=== PATIENT | male | born 1965 | race Caucasian/White ===

== ENCOUNTER 2017-05-20 07:21 | Emergency (ER) | payer MEDICARE, OTHER ==
[2017-05-20 07:35] VITALS: RESP 18; TEMP 96.9
[2017-05-20] MEDS ORDERED: hydrALAZINE HCL 20 MG/ML 1 ML VIAL IM STA (07:59)
[2017-05-20] MEDS ORDERED: Acetaminophen-Codeine 300-30mg TAB PO STA (08:00)
[2017-05-20 08:07] VITALS: BP 138/88
[2017-05-20 08:20] LABS: Anisocytosis Slight; Basophils % (A) 1 %; CH 24.7; CHCM 31.8; Eosinophils # (A) 0.2 k/uL (0-0.7); Eosinophils % (A) 3 %; HDW 3.14; HGB 11.9 gm/dL (13.0-17.5); Hypochromasia Slight; Luc # (Auto) 0.11; Luc % (Auto) 2; Lymphocytes # (A) 1.6 k/uL (1.0-4.8); Lymphocytes % (A) 24 %; MCH 23.8 pg (25.0-35.0); MCHC 30.5 g/dL (31.0-37.0); MCV 78.1 fL (80.0-100.0); Mean Platelet Volume 10.6; Microcytosis Slight; Monocytes # (A) 0.4 k/uL (0-1.0); Monocytes % (A) 7 %; Neutrophils # (A) 4.1 k/uL (1.3-7.7); Neutrophils % (A) 64 %; RBC 4.99 m/uL (4.30-5.90); RDW 16.3 % (11.5-15.5); WBC 6.4 k/uL (3.8-10.6); WBC (Perox) 6.74
--- NOTE | 2017-05-20 08:37 | XR ---
EXAMINATION TYPE: XR forearm LT , 2 VIEWS DATE OF EXAM ORDERED: 05/20/2017 HISTORY: Pain. COMPARISON: None. FINDINGS: No long bone abnormality is seen. No fracture or dislocation is identified. IMPRESSION: NORMAL LEFT RADIUS AND ULNA.
--- NOTE | 2017-05-20 08:38 | XR ---
EXAMINATION TYPE: XR humerus LT , 2 VIEWS DATE OF EXAM ORDERED: 05/20/2017 HISTORY: Pain. COMPARISON: None. FINDINGS: No long bone abnormalities identified. No fracture, dislocation or other acute osseous les ion is seen. IMPRESSION: NO ACUTE OSSEOUS LESION.
--- NOTE | 2017-05-20 09:32 | US ---
EXAMINATION TYPE: US venous doppler duplex UE LT DATE OF EXAM: 05/20/2017 COMPARISON: NONE CLINICAL HISTORY: Pain. Left arm pain x 3 days. No redness or swelling. No blood thinners or hx of blood clots. SIDE PERFORMED: Left Left Arm: Appears negative for DVT IMPRESSION: THIS EXAMINATION IS NEGATIVE FOR DVT WITHIN THE LEFT ARM.
--- NOTE | 2017-05-20 10:12 | ED ---
Upper Extremity HPI - General Chief Complaint: Extremity Injury, Upper Stated Complaint: left arm pain Time Seen by Provider: 05/20/17 07:49 Source: patient Mode of arrival: ambulatory Limitations: no limitations - History of Present Illness Initial Comments: 13 years old male presented with a left proximal leg, left, been hurting for the last 3 days he feels that the pain is 60. The muscles he denies any trauma he denies any fall he denies any history of cancer or stroke, he denies any solution for recent increased workout activity. No chest pain or shortness of breath no pleuritic chest pain no fever no chills - Related Data Previous Rx's Medication Instructions Recorded Diclofenac Sodium [Voltaren] 50 mg PO BID #30 tablet. 05/20/17 Allergies Allergy/AdvReac Type Severity Reaction Status Date / Time lisinopril Allergy Swelling Verified 05/20/17 07:35 Review of Systems ROS Statement: Those systems with pertinent positive or pertinent negative responses have been documented in the HPI. ROS Other: All systems not noted in ROS Statement are negative. Past Medical History Past Medical History: Hypertension Additional Past Medical History / Comment(s): Terets syndrome, low testosterone History of Any Multi-Drug Resistant Organisms: None Reported Additional Past Surgical History / Comment(s): left hip, Past Psychological History: Depression Smoking Status: Current every day smoker Past Alcohol Use History: None Reported Past Drug Use History: None Reported General Exam - General Exam Comments Initial Comments: General: The patient is awake and alert, in no distress, and does not appear acutely ill. Skin: Skin is warm and dry and no rashes or lesions are noted. Eye: Pupils are equal, round and reactive to light, extra-ocular movements are intact; there is normal conjunctiva bilaterally. Ears, nose, mouth and throat: There are moist mucous membranes and no oral lesions. Neck: The neck is supple, there is no tenderness or JVD. Cardiovascular: There is a regular rate and rhythm. No murmur, rub or gallop is appreciated. Respiratory: To auscultation bilateral, no wheezing no rhonchi no distress respiratory robles noticed Gastrointestinal: Soft, non-distended, non-tender abdomen without masses or organomegaly noted. There is no rebound or guarding present. Bowel sounds are unremarkable. Back: There is no tenderness to palpation in the midline. There is no obvious deformity. Musculoskeletal: Deep palpation of the biceps and triceps reveals some tenderness, no neurovascular compromise noticed no motor or sensory deficits noticed. Refills are fine on the left forearm in the fingers. Neurological: CN II-XII intact, Cranial nerves III through XII are intact. There are no obvious motor or sensory deficits. Coordination appears grossly intact. Speech is normal. Psychiatric: Cooperative, appropriate mood & affect, normal judgment. Limitations: no limitations Course Vital Signs 05/20/17 05/20/17 07:30 08:06 Temperature 96.9 F L Pulse Rate 80 71 Respiratory 18 18 Rate Blood Pressure 183/94 138/88 O2 Sat by Pulse 99 96 Oximetry Medical Decision Making - Lab Data Result diagrams: 05/20/17 08:13 Lab Results 05/20/17 05/20/17 Range/Units 08:13 08:13 WBC 6.4 (3.8-10.6) k/uL RBC 4.99 (4.30-5.90) m/uL Hgb 11.9 L (13.0-17.5) gm/dL Hct 39.0 (39.0-53.0) % MCV 78.1 L (80.0-100.0) fL MCH 23.8 L (25.0-35.0) pg MCHC 30.5 L (31.0-37.0) g/dL RDW 16.3 H (11.5-15.5) % Plt Count 242 (150-450) k/uL Neutrophils % 64 % Lymphocytes % 24 % Monocytes % 7 % Eosinophils % 3 % Basophils % 1 % Neutrophils # 4.1 (1.3-7.7) k/uL Lymphocytes # 1.6 (1.0-4.8) k/uL Monocytes # 0.4 (0-1.0) k/uL Eosinophils # 0.2 (0-0.7) k/uL Basophils # 0.0 (0-0.2) k/uL Hypochromasia Slight Anisocytosis Slight Microcytosis Slight D-Dimer 0.88 H (<0.60) mg/L FEU Disposition Clinical Impression: Pain in left arm Disposition: HOME SELF-CARE Condition: Good Instructions: Elbow Sprain (ED) Prescriptions: Diclofenac Sodium [Voltaren] 50 mg PO BID #30 tablet.dr Referrals: Rell Frankel MD [Primary Care Provider] - 1-2 days
[2017-05-20 10:18] VITALS: PULSE 75
== END 2017-05-20 10:17 | disposition home or self-care (01) ==
LOC: EC 07:21
DX: M79.602 Pain in left arm (principal); F17.200 Nicotine dependence, unspecified, uncomplicated; Z88.8 Allergy status to other drugs, medicaments and biological substances
CPT/HCPCS: 36415; 85025; 85379; 99284

== ENCOUNTER 2018-03-26 14:54 | Emergency (ER) | payer MEDICARE, OTHER ==
[2018-03-26 15:00] VITALS: BP 125/81; PULSE 76; RESP 16; TEMP 98.1
--- NOTE | 2018-03-26 15:40 | ED ---
General Adult HPI - General Chief complaint: Skin/Abscess/Foreign Body Stated complaint: Elbow abcess Time Seen by Provider: 03/26/18 15:04 Source: patient, RN notes reviewed Mode of arrival: ambulatory Limitations: no limitations - History of Present Illness Initial comments: Patient 52-year-old male presenting to the emergency room today with a chief complaint of swelling to the posterior aspect of the right elbow. Patient admits that he's had similar symptoms in the past. States this started approximately 4-7 days ago. Patient states that his nontender. The directly put pressure on it. Patient denies any other complaints or symptoms. Patient denies any recent fever, chills, shortness of breath, chest pain, back pain, abdominal pain, nausea or vomiting, numbness or tingling, dysuria or hematuria, constipation or diarrhea, headaches or visual changes, or any other complaints. - Related Data Home Medications Medication Instructions Recorded Confirmed Acetaminophen [Tylenol] 650 mg PO Q4H PRN 03/26/18 03/26/18 Albuterol Inhaler [Ventolin Hfa 1 - 2 puff INHALATION RT-Q4H PRN 03/26/18 Inhaler] Benztropine Mesylate Unknown Dose 1 tab PO BID@0600,1730 03/26/18 03/26/18 Chlorpheniramine Maleate 4 mg PO Q4H PRN 03/26/18 03/26/18 [Chlor-Trimeton] FLUoxetine HCL [PROzac] 20 mg PO BID@0600,1730 03/26/18 03/26/18 Ibuprofen 600 mg PO Q6H PRN 03/26/18 03/26/18 Mirtazapine [Remeron] 15 mg PO HS 03/26/18 03/26/18 Omeprazole [PriLOSEC] 20 mg PO AC-BRKFST 03/26/18 03/26/18 Propranolol HCl 40 mg PO BID 03/26/18 03/26/18 Sulfamethoxazole/Trimethoprim 1 tab PO BID@0600,1530 03/26/18 03/26/18 [Bactrim DS 800-160 mg] Tamsulosin HCl [Flomax] 0.4 mg PO DAILY 03/26/18 03/26/18 amLODIPine [Norvasc] 10 mg PO BID@0600,1730 03/26/18 03/26/18 guaiFENesin [guaiFENesin Oral 200 mg PO Q4H PRN 03/26/18 03/26/18 Solution] Allergies Allergy/AdvReac Type Severity Reaction Status Date / Time lisinopril Allergy Swelling Verified 03/26/18 15:16 Review of Systems ROS Statement: Those systems with pertinent positive or pertinent negative responses have been documented in the HPI. ROS Other: All systems not noted in ROS Statement are negative. Past Medical History Past Medical History: Hypertension Additional Past Medical History / Comment(s): Terets syndrome, low testosterone History of Any Multi-Drug Resistant Organisms: None Reported Past Surgical History: Orthopedic Surgery Additional Past Surgical History / Comment(s): left hip, I&D of cyst to buttocks Past Psychological History: Depression Smoking Status: Current every day smoker Past Alcohol Use History: None Reported Past Drug Use History: None Reported General Exam - General Exam Comments Initial Comments: General: The patient is awake and alert, in no distress, and does not appear acutely ill. Neck: The neck is supple, there is no tenderness or JVD. Musculoskeletal: Patient does have moderate swelling to the posterior aspect of the right elbow. Shows full range of motion. Local tenderness on exam. Findings consistent with bursitis. Sensations intact. Strength 5/5. Radial pulses 2+. Neurological: A&O x 3. CN II-XII intact, There are no obvious motor or sensory deficits. Coordination appears grossly intact. Speech is normal. Skin: Skin is warm and dry and no rashes or lesions are noted. Psychiatric: Normal mood and affect. Limitations: no limitations Course Vital Signs 03/26/18 14:56 Temperature 98.1 F Pulse Rate 76 Respiratory 16 Rate Blood Pressure 125/81 O2 Sat by Pulse 97 Oximetry Procedures - Procedures Initial comment: Patient's right elbow was prepped and cleaned with Betadine. Ethyl chloride spray was used to anesthetize the area locally. 18-gauge needle was used to aspirate bursa. Approximately 15 mL of fluid was removed. Patient tolerated procedure well. Bereket wrap was placed over top and advised patient to remove in 10-15 minutes. Medical Decision Making - Medical Decision Making Patient presenting for bursitis to the right elbow. Patient was agreeable to try to drain the area did advise that is chance that it may fill back up. Patient tolerated procedure well. Was placed in Bereket wrap for some compression afterwards 10-15 minutes. Patient be discharged home. Disposition Clinical Impression: Olecranon bursitis, right elbow Disposition: HOME SELF-CARE Condition: Good Instructions: Elbow Bursitis (ED) Additional Instructions: Please return to emergency room if any symptoms increase or worsen or for any other concerns. Is patient prescribed a controlled substance at d/c from ED?: No Referrals: None,Stated [Primary Care Provider] - 1-2 days Time of Disposition: 15:40
== END 2018-03-26 15:54 | disposition home or self-care (01) ==
LOC: EC 14:54
DX: M70.21 Olecranon bursitis, right elbow (principal); I10 Essential (primary) hypertension; F32.9 Major depressive disorder, single episode, unspecified; F17.200 Nicotine dependence, unspecified, uncomplicated; Z79.899 Other long term (current) drug therapy; Z88.8 Allergy status to other drugs, medicaments and biological substances
CPT/HCPCS: 20605; 99282

== ENCOUNTER 2018-05-23 18:51 | Inpatient (IN) | payer MEDICARE ==
--- NOTE | 2018-05-23 19:25 | ED ---
General Adult HPI - General Chief complaint: Psychiatric Symptoms Stated complaint: Detox Source: patient, family Mode of arrival: wheelchair Limitations: no limitations - History of Present Illness Initial comments: Dictation was produced using xaitment dictation software. please excuse any grammatical, word or spelling errors. Chief Complaint: Patient is a 52-year-old male presents after alcohol intoxication. According to his friend who brought him here he complained of wanting to kill himself. She allegedly fell down 5 steps. History of Present Illness: 52-year-old male who is brought by his friend. Patient is severely intoxicated. He allegedly fell down 5 steps. Patient unable to provide HPI this time likely secondary to severe intoxication of alcohol. According to triage nurse his friend brought him here after stating he wanted to kill himself. He allegedly fell down 5 steps as well. Patient is arousable however does not remember this incident happening. Patient does report saying he wanted to kill himself. - Related Data Home Medications Medication Instructions Recorded Confirmed Acetaminophen [Tylenol] 650 mg PO Q4H PRN 03/26/18 03/26/18 Albuterol Inhaler [Ventolin Hfa 1 - 2 puff INHALATION RT-Q4H PRN 03/26/18 Inhaler] Benztropine Mesylate Unknown Dose 1 tab PO BID@0600,1730 03/26/18 03/26/18 Chlorpheniramine Maleate 4 mg PO Q4H PRN 03/26/18 03/26/18 [Chlor-Trimeton] FLUoxetine HCL [PROzac] 20 mg PO BID@0600,1730 03/26/18 03/26/18 Ibuprofen 600 mg PO Q6H PRN 03/26/18 03/26/18 Mirtazapine [Remeron] 15 mg PO HS 03/26/18 03/26/18 Omeprazole [PriLOSEC] 20 mg PO AC-BRKFST 03/26/18 03/26/18 Propranolol HCl 40 mg PO BID 03/26/18 03/26/18 Sulfamethoxazole/Trimethoprim 1 tab PO BID@0600,1530 03/26/18 03/26/18 [Bactrim DS 800-160 mg] Tamsulosin HCl [Flomax] 0.4 mg PO DAILY 03/26/18 03/26/18 amLODIPine [Norvasc] 10 mg PO BID@0600,1730 03/26/18 03/26/18 guaiFENesin [guaiFENesin Oral 200 mg PO Q4H PRN 03/26/18 03/26/18 Solution] Allergies Allergy/AdvReac Type Severity Reaction Status Date / Time lisinopril Allergy Swelling Verified 05/23/18 18:59 Review of Systems ROS Statement: Those systems with pertinent positive or pertinent negative responses have been documented in the HPI. ROS Other: All systems not noted in ROS Statement are negative. Past Medical History Past Medical History: Hypertension Additional Past Medical History / Comment(s): Terets syndrome, low testosterone History of Any Multi-Drug Resistant Organisms: None Reported Past Surgical History: Orthopedic Surgery Additional Past Surgical History / Comment(s): left hip, I&D of cyst to buttocks Past Psychological History: Depression Smoking Status: Current every day smoker Past Alcohol Use History: Abuse, Daily, Heavy Past Drug Use History: None Reported General Exam - General Exam Comments Initial Comments: PHYSICAL EXAM: General Impression: Alert and oriented, inebriated HEENT: Normocephalic atraumatic, extra-ocular movements intact, pupils equal and reactive to light bilaterally, mucous membranes moist. Cardiovascular: Heart regular rate and rhythm, S1&S2 audible, no murmurs, rubs or gallops Chest: Lungs clear to auscultation bilaterally, no rhonchi, no wheeze, no rales Abdomen: Bowel sounds present, abdomen soft, non-tender, non-distended, no organomegaly Musculoskeletal: Pulses present and equal in all extremities, no peripheral edema Motor: Moves all extremity is grossly Neurological: CN II-XII grossly intact, no focal motor or sensory deficits noted Skin: Intact with no visualized rashes Psych: Normal affect and mood Limitations: no limitations Course Vital Signs 05/23/18 18:55 Temperature 98.4 F Pulse Rate 109 H Respiratory 20 Rate Blood Pressure 149/96 O2 Sat by Pulse 98 Oximetry Medical Decision Making - Medical Decision Making ED course: 52-year-old male presents with history of suicidal ideation and fall down 5 steps. Patient intoxicated. As upon arrival shows heart rate of 109, worse vital signs within normal limits. Physical examination is benign. No findings of injury on external examination.Laboratory evaluation obtained. CBC unremarkable. Metabolic panel shows sodium of 1:30. There is mild gap acidosis likely secondary to EtOH intoxication. Hyperglycemia 1:15. Serum alcohol is 388. Clinical presentation consistent with beer potomania. Chest x-ray, pelvis x-ray, CT of the head and C-spine shows no traumatic issues. Given degree of intoxication we 'll plan to have patient admitted to the hospital. He will need suicide precautions patient started on intravenous fluids. He is given vitamins. EKG interpretation: Ventricular rate 112, sinus tachycardia,. Interval 160, QRS 94, QTC 475. No MT prolongation, no QTC prolongation, no ST or T-wave changes noted. Overall, this EKG is unremarkable - Lab Data Result diagrams: 05/23/18 19:45 05/23/18 19:45 Lab Results 05/23/18 05/23/18 Range/Units 19:45 19:45 WBC 10.2 (3.8-10.6) k/uL RBC 5.18 (4.30-5.90) m/uL Hgb 13.2 (13.0-17.5) gm/dL Hct 39.4 (39.0-53.0) % MCV 76.1 L (80.0-100.0) fL MCH 25.5 (25.0-35.0) pg MCHC 33.5 (31.0-37.0) g/dL RDW 17.0 H (11.5-15.5) % Plt Count 359 (150-450) k/uL Neutrophils % 82 % Lymphocytes % 12 % Monocytes % 4 % Eosinophils % 1 % Basophils % 0 % Neutrophils # 8.3 H (1.3-7.7) k/uL Lymphocytes # 1.2 (1.0-4.8) k/uL Monocytes # 0.4 (0-1.0) k/uL Eosinophils # 0.1 (0-0.7) k/uL Basophils # 0.0 (0-0.2) k/uL Anisocytosis Slight Microcytosis Slight Sodium 130 L (137-145) mmol/L Potassium 4.1 (3.5-5.1) mmol/L Chloride 90 L (98-107) mmol/L Carbon Dioxide 17 L (22-30) mmol/L Anion Gap 23 mmol/L BUN 2 L (9-20) mg/dL Creatinine 0.58 L (0.66-1.25) mg/dL Est GFR (CKD-EPI)AfAm >90 (>60 ml/min/1.73 sqM) Est GFR (CKD-EPI)NonAf >90 (>60 ml/min/1.73 sqM) Glucose 115 H (74-99) mg/dL Calcium 8.9 (8.4-10.2) mg/dL Salicylates <1.0 mg/dL Serum Alcohol 388 H* mg/dL Acetone, Qual Negative (Negative) Disposition Clinical Impression: Alcohol intoxication Disposition: ADMITTED IP TO THIS HOSP Condition: Fair Referrals: None,Stated [Primary Care Provider] - 1-2 days Decision Time: 21:56
[2018-05-23 19:59] LABS: Anisocytosis Slight; Basophils % (A) 0 %; Eosinophils # (A) 0.1 k/uL (0-0.7); Eosinophils % (A) 1 %; HCT 39.4 % (39.0-53.0); HGB 13.2 gm/dL (13.0-17.5); Lymphocytes # (A) 1.2 k/uL (1.0-4.8); Lymphocytes % (A) 12 %; MCH 25.5 pg (25.0-35.0); MCHC 33.5 g/dL (31.0-37.0); MCV 76.1 fL (80.0-100.0); Microcytosis Slight; Monocytes # (A) 0.4 k/uL (0-1.0); Monocytes % (A) 4 %; Neutrophils # (A) 8.3 k/uL (1.3-7.7); Neutrophils % (A) 82 %; Platelet Count 359 k/uL (150-450); RBC 5.18 m/uL (4.30-5.90); WBC 10.2 k/uL (3.8-10.6)
--- NOTE | 2018-05-23 20:08 | CT ---
EXAMINATION TYPE: CT brain kwan kumar DATE OF EXAM: 05/23/2018 COMPARISON: None HISTORY: ETOH. Altered mental status. CT DLP: 1647.8 mGycm Automated exposure control for dose reduction was used. TECHNIQUE: CT scan of the head and cervical spine are performed without contrast. FINDINGS: There is some cerebral cortical atrophy. There is no mass effect nor midline shift. There is no sign of intracranial hemorrhage. There is 3.5 x 1.5 cm area of fluid density in the right occi pital lobe consistent with old cortical infarct and encephalomalacia. Cervical vertebra have normal alignment. There is some degenerative disc space narrowing the lower ce rvical spine. There is no compression fracture. Facet joints are intact. There is mild spurring of th e endplates. The skull base is intact. 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 No fracture. 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 No acute intracranial abnormality.
[2018-05-23 20:11] LABS: Anion Gap 23 mmol/L; Blood Urea Nitrogen 2 mg/dL (9-20); Calcium 8.9 mg/dL (8.4-10.2); Carbon Dioxide 17 mmol/L (22-30); Chloride 90 mmol/L (98-107); Glucose 115 mg/dL (74-99); Potassium 4.1 mmol/L (3.5-5.1); Salicylate <1.0 mg/dL; Sodium 130 mmol/L (137-145)
[2018-05-23 20:19] LABS: Alcohol 388 mg/dL
--- NOTE | 2018-05-23 21:40 | XR ---
EXAMINATION TYPE: XR chest 1V DATE OF EXAM: 05/23/2018 COMPARISON: NONE HISTORY: Fall. Chest pain TECHNIQUE: Single frontal view of the chest is obtained. FINDINGS: There is no heart failure nor confluent pneumonic infiltrate. There are bilateral old heal ed rib fractures. I see no definite acute fracture. Costophrenic angles are clear. There is no pneumo thorax. IMPRESSION: No active cardiopulmonary disease.
--- NOTE | 2018-05-23 21:41 | XR ---
EXAMINATION TYPE: XR pelvis AP view DATE OF EXAM: 05/23/2018 COMPARISON: NONE HISTORY: Pain TECHNIQUE: Single view FINDINGS: There is left hip prosthesis. There is mild protrusio of the prosthetic acetabulum. I see n o acute fracture. Pelvic ring is intact. Sacroiliac joints are intact. IMPRESSION: Mild protrusio of the prosthetic acetabulum. No acute bony abnormality.
[2018-05-23] MEDS ORDERED: SODIUM CHLORIDE 0.9% 1,000 ML IV STA (21:51)
[2018-05-23] MEDS ORDERED: NALOXONE 0.4 MG/ML 1 ML VIAL IV PRN (21:52)
[2018-05-23] MEDS ORDERED: THIAMINE 100 MG/ML 2 ML VIAL IM STA (21:53)
[2018-05-23] MEDS ORDERED: FOLIC ACID 1 MG TAB PO STA (21:53)
[2018-05-23 22:11] LABS: Amphetamine Screen,Urine Not Detected (NotDetected); Barbiturate Screen,Urine Not Detected (NotDetected); Benzodiazepines Screen,Urine Not Detected (NotDetected); Cocaine Screen,Urine Not Detected (NotDetected); Methadone Screen, Urine Not Detected (NotDetected); Opiate Screen,Urine Not Detected (NotDetected); Oxycodone Screen, Urine Not Detected (NotDetected); Phencyclidine Screen,Urine Not Detected (NotDetected); Tricyclic Antidepressant,Urine Not Detected (NotDetected); Urn Cannabinoid Scrn Not Detected (NotDetected)
[2018-05-23] MEDS ORDERED: LORazepam 2 MG/ML INJ IV STA (22:23)
[2018-05-23] MEDS ORDERED: LORazepam 2 MG/ML INJ IV PRN ×2 (23:03)
[2018-05-23] MEDS ORDERED: NICOTINE 14MG/24HR PATCH TRANSDERM STA (23:05)
[2018-05-23] MEDS: LORazepam 2 MG/ML INJ IV PRN (23:40)
[2018-05-24] MEDS ORDERED: oxyCODONE-APAP 10-325MG 1 EACH TAB PO PRN (00:47)
[2018-05-24] MEDS ORDERED: TESTOSTERONE CYPIONATE 200 MG/ML 1ML VIAL IM SCH (01:00)
[2018-05-24] MEDS: chlordiazePOXIDE 25 MG CAP PO SCH ×4 (01:19→21:11)
[2018-05-24] MEDS: THIAMINE 100 MG TAB PO SCH ×3 (01:39→17:58)
[2018-05-24 04:20] LABS: Hemoglobin A1C 5.7 % (4.0-6.0)
[2018-05-24] MEDS: LORazepam 2 MG/ML INJ IV PRN ×5 (06:15→14:37)
[2018-05-24] MEDS: GABAPENTIN 400 MG CAP PO SCH ×4 (07:24→21:09)
[2018-05-24] MEDS: PANTOPRAZOLE 40 MG TABLET PO SCH (07:24)
[2018-05-24] MEDS: HEPARIN SODIUM,PORCINE 5,000 UNIT/ML 1 ML VIAL SQ SCH ×2 (07:24→21:09)
[2018-05-24] MEDS: NICOTINE 14MG/24HR PATCH TRANSDERM SCH (07:24)
--- NOTE | 2018-05-24 08:39 | HP ---
HISTORY AND PHYSICAL DATE OF SERVICE: 05/23/2018 CHIEF COMPLAINT: Alcohol intoxication. HISTORY OF PRESENT ILLNESS: This is a 52-year-old gentleman with a past medical history of multiple medical problems, including hypertension, history of Tourette syndrome, history of low testosterone, history of depression also gives history of current smoking and alcohol intoxication. Patient was brought by a friend to the to the ER in intoxicated state, had a fall and patient was found to be severely intoxicated and admitted for further evaluation. Patient is incoherent. Alcohol level was 388. Most of the history is from my discussion with staff and review of chart at this time. There is no history of fever, rigors or chills at this time. PAST MEDICAL HISTORY: Hypertension, Tourette syndrome, depression, history of nicotine dependence, ETOH. MEDICATIONS ARE: 1. Testosterone. 2. Oxycodone 10 mg q.4 p.r.n. 3. Norvasc 10 mg b.i.d. 4. Prilosec 20 mg daily. 5. Haldol 150 mg p.o. b.i.d. 6. Gabapentin 800 mg q.i.d. 7. Prozac 20 mg t.i.d. ALLERGIES: LISINOPRIL. FAMILY HISTORY: Unable to obtain. SOCIAL HISTORY: History of alcohol, smoking as mentioned earlier. REVIEW OF SYSTEMS: Could not be taken because the patient is confused. PHYSICAL EXAM: Pulse 104, blood pressure 114/88, respirations 16, temperature 98.4, pulse ox 97% on room air. HEENT: Oral mucosa moist. Neck is no jugular venous distention. No lymph node enlargement. CARDIOVASCULAR SYSTEMS: S1, S2, muffled. RESPIRATION: Breath sounds diminished at the bases, scattered rhonchi, no crackles. ABDOMEN: Soft, nontender. No mass palpable. LEGS: No edema, no swelling. NERVOUS SYSTEM: Higher functions as mentioned earlier. Moves all four limbs. No lymph nodes. SKIN: No ulcer, no rashes. LABS: CBC within normal. Sodium 130, glucose 115. ASSESSMENT: 1. Acute alcohol intoxication. 2. Possibly alcoholic withdrawal syndrome. 3. Hyponatremia. 4. History of fall. 5. Hypertension. 6. Tourette syndrome. 7. Low testosterone. 8. History of nicotine dependence. 9. History of depression. RECOMMENDATION: In this 52-year-old gentleman who presented with multiple medical issues, at this time I recommend to continue current management. Continue symptomatic treatment, CIWA protocol. Repeat labs. Otherwise, resume the home medications. Symptomatic treatment. 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 Otherwise in rehab and evaluation of the home situation. Otherwise, prognosis guarded because of multiple complex medical issues. Further recommendations to follow. See orders for further details. Consult Psych also because of extensive psychiatric history. MMODL / IJN: [id number] /
--- NOTE | 2018-05-24 12:37 | P.CN ---
Psychiatric Consult - . Consult date: 05/24/18 Consult:: 05/24/18 12:26 Suicidal Assessment and Plan Assessment: Chief Complaint: Patient is a 52-year-old male presents after alcohol intoxication. According to his friend who brought him here he complained of wanting to kill himself. He allegedly fell down 5 steps. 52-year-old male presents with history of suicidal ideation and fell down 5 steps. Patient intoxicated. As upon arrival he shows heart rate of 109 , worse vital signs within normal limits. Physical examination is benign. No findings of injury on external examination.Laboratory evaluation obtained. CBC unremarkable. Metabolic panel shows sodium of 1:30. There is mild gap acidosis likely secondary to EtOH intoxication. Hyperglycemia 1:15. Serum alcohol is 388. Clinical presentation consistent with beer ingestion Chest x- ray, pelvis x-ray, CT of the head and C-spine shows no traumatic issues. Given degree of intoxication we'll plan to have patient admitted to the hospital. He will need suicide precautions patient started on intravenous fluids. He is given vitamins. Current chief complaint is he needs a psychiatric medication and she'll be [facility]. Past Medical History Past Medical History: Hypertension Additional Past Medical History / Comment(s): Terets syndrome, low testosterone History of Any Multi-Drug Resistant Organisms: None Reported Past Surgical History: Orthopedic Surgery Additional Past Surgical History / Comment(s): left hip, I&D of cyst to buttocks Past Psychological History: Depression Smoking Status: Current every day smoker Past Alcohol Use History: Abuse, Daily, Heavy Past Drug Use History: None Reported Mental Status Examination - this is a 52-year-old who was brought in because of questionable suicidal ideation and alcohol intoxication. He has multiple tattoos over his body. I had checked with [facility] this morning he is one of their clients. General Appearance: disheveled, , appears older than stated age] Speech/Language: [spontaneous, slow, rapid, slurred, rambled, mumbling, hesitant , halting, monotone, expressive, mute, loud, soft, other] Attitude/Behavior: [cooperative Mood: depressed, anxious, Affect: [full range,labile] Orientation: [time, person, place situation] Thought Content: [wnl, Risk Factors: [He is not suicidal (ideations, plan), and/or Homicidal (ideations , plan)] Perception: [wnl Thought Processes: [goal-oriented Concentration/Attention Span: [wnl] [Per observation and interview with the patient] Recent Memory: [wnl Remote Memory: [wnl] [past events, as related history] Intelligence: [below average] [based on history, based on vocabulary, syntax, grammar, and content] Judgement: [ poor] [per patient's behavior/history of present illness] Insight: [ poor] [understanding severity of illness/history of present illness Clinical impression: This is a 52-year-old chronically mentally ill dual diagnosed individual who has little interest in stopping drinking. He states that he has run out of his Haldol decanoate and states he [facility]. At this time I don't see a need for sitter since he is not suicidal or homicidal but just recovering from alcohol intoxication. He had appropriate medications on board to deal with his alcohol withdrawal and I see no need for a sitter. Recommendations: I do not see a need for this man to be in psychiatric unit since he is intoxicated and will require detox from alcohol which is begun already. Thank you so much for the consultation Flaquito Taylor D.O. PhD attending psychiatrist Jose Rafael Ortiz (1) Suicidal ideations Current Visit: Yes Status: Acute Priority: Low Code(s): R45.851 - SUICIDAL IDEATIONS SNOMED Code(s): 5613257 (2) Alcohol intoxication Current Visit: Yes Status: Acute Priority: Medium Code(s): F10.929 - ALCOHOL USE, UNSPECIFIED WITH INTOXICATION, UNSPECIFIED SNOMED Code(s): 95385785 Plan: [facility] he does not need inpatient treatment at the current time Time with Patient: Less than 30
[2018-05-24] MEDS: amLODIPine 10 MG TAB PO SCH ×2 (14:14→21:09)
[2018-05-24] MEDS: FLUoxetine HCL 20 MG CAP PO SCH ×2 (14:15→21:09)
[2018-05-24] MEDS ORDERED: SODIUM CHLORIDE 0.9% 1,000 ML with POTASSIUM CHLORIDE 20 MEQ, MVI, ADULT NO.4 WITH VIT ... IV SCH ×5 (17:45)
[2018-05-24] MEDS: 1: MVI, ADULT NO.4 WITH VIT K 10 ML, THIAMINE 100 MG, FOLIC ACID 1 MG, POTASSIUM CHLORID IV SCH ×6 (18:54)
[2018-05-24] MEDS: TEMAZEPAM 15 MG CAP PO PRN (21:12)
[2018-05-24] MEDS: KETOROLAC 30 MG/ML 1 ML VIAL IVP PRN (22:03)
[2018-05-25] MEDS ORDERED: KETOROLAC 30 MG/ML 1 ML VIAL IVP SCH
[2018-05-25] MEDS: 1: MVI, ADULT NO.4 WITH VIT K 10 ML, THIAMINE 100 MG, FOLIC ACID 1 MG, POTASSIUM CHLORID IV SCH ×12 (05:32→17:14)
[2018-05-25] MEDS: KETOROLAC 30 MG/ML 1 ML VIAL IVP PRN ×2 (08:15→17:17)
[2018-05-25] MEDS: FLUoxetine HCL 20 MG CAP PO SCH ×3 (08:16→21:48)
[2018-05-25] MEDS: NICOTINE 14MG/24HR PATCH TRANSDERM SCH (08:16)
[2018-05-25] MEDS: amLODIPine 10 MG TAB PO SCH ×2 (08:16→20:02)
[2018-05-25] MEDS: HEPARIN SODIUM,PORCINE 5,000 UNIT/ML 1 ML VIAL SQ SCH ×2 (08:16→20:03)
[2018-05-25] MEDS: PANTOPRAZOLE 40 MG TABLET PO SCH (08:16)
[2018-05-25] MEDS: chlordiazePOXIDE 25 MG CAP PO SCH ×3 (08:16→21:48)
[2018-05-25] MEDS: GABAPENTIN 400 MG CAP PO SCH ×4 (08:16→20:02)
[2018-05-25 08:29] LABS: Anisocytosis Slight; Basophils % (A) 0 %; Eosinophils # (A) 0.2 k/uL (0-0.7); Eosinophils % (A) 5 %; HCT 40.5 % (39.0-53.0); HGB 12.7 gm/dL (13.0-17.5); Hypochromasia Slight; Lymphocytes # (A) 1.6 k/uL (1.0-4.8); Lymphocytes % (A) 34 %; MCH 25.3 pg (25.0-35.0); MCHC 31.4 g/dL (31.0-37.0); MCV 80.7 fL (80.0-100.0); Mean Platelet Volume 8.2; Microcytosis Slight; Monocytes # (A) 0.3 k/uL (0-1.0); Monocytes % (A) 6 %; Neutrophils # (A) 2.5 k/uL (1.3-7.7); Neutrophils % (A) 53 %; Platelet Count 219 k/uL (150-450); RBC 5.02 m/uL (4.30-5.90); RDW 17.1 % (11.5-15.5); WBC 4.8 k/uL (3.8-10.6)
[2018-05-25 08:45] LABS: Anion Gap 9 mmol/L; Blood Urea Nitrogen 7 mg/dL (9-20); Calcium 8.9 mg/dL (8.4-10.2); Carbon Dioxide 27 mmol/L (22-30); Chloride 101 mmol/L (98-107); Glucose 122 mg/dL (74-99); Potassium 3.9 mmol/L (3.5-5.1); Sodium 137 mmol/L (137-145)
[2018-05-25] MEDS ORDERED: MORPHINE SULFATE 2 MG/ML SYRINGE IVP PRN (08:57)
--- NOTE | 2018-05-25 10:25 | XR ---
EXAMINATION TYPE: XR Hip Complete LT , 2 VIEWS DATE OF EXAM ORDERED: 05/25/2018 HISTORY: fall and pain . COMPARISON: Previous pelvis x-ray dated 05/23/2018. FINDINGS: There is a left hip arthroplasty in place. Prosthetic elements appear in good position. Th ere is a lucency through the greater trochanter which was present previously but is more obvious on t kateryna's examination likely secondary to positioning. This does not have the appearance of an acute fra cture. There is a chronic pleural reaction on the left. IMPRESSION: 1. STATUS POST LEFT HIP ARTHROPLASTY. 2. CHRONIC CHANGES WITHOUT EVIDENCE OF AN ACUTE FRACTURE.
--- NOTE | 2018-05-25 10:26 | XR ---
EXAMINATION TYPE: XR knee 4V LT , 4 VIEWS DATE OF EXAM ORDERED: 05/25/2018 HISTORY: fall and pain . COMPARISON: None. FINDINGS: There is peaking of intercondylar spines. Joint spaces are reasonably well-maintained. No fracture, dislocation or joint effusion is seen. There is a chronic separation of the tibial tubercle . IMPRESSION: 1. NO ACUTE OSSEOUS LESION. 2. DEGENERATIVE CHANGE.
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
[2018-05-25] MEDS: HYDROcodone/APAP 10-325MG 1 EACH TAB PO PRN (12:38)
[2018-05-25] MEDS: THIAMINE 100 MG TAB PO SCH ×2 (12:38→17:14)
--- NOTE | 2018-05-25 12:52 | P.PN ---
Subjective Progress Note Date: 05/24/18 Progress note being dictated for Dr. Saavedra. Interval history this is a 52-year-old gentleman admitted with alcohol intoxication and multiple other medical issues. Maintained on CIWA protocol. Active DTs, significant shaking. CIWA scale currently 11. Evaluated by psychiatry with recommendations noted. Later after rounding on patient, staff notified me that after having a visitor, discovered an empty 1 pint bottle of [place] whiskey. Patient admitted to drinking the entire bottle. Denies chest pain, palpitations or increasing shortness of breath. Objective - Vital Signs Vital signs: Vital Signs Temp 97.1 F L 05/24/18 14:46 Pulse 128 H 05/24/18 14:46 Resp 16 05/24/18 14:46 BP 146/96 05/24/18 14:46 Pulse Ox 97 05/24/18 14:46 Intake & Output 05/24/18 05/24/18 05/25/18 06:59 18:59 06:59 Intake Total 200 Output Total 375 Balance -375 200 Weight 64.5 kg Intake: Oral 200 Output: Urine 375 Other: # Voids 3 # Bowel Movements 0 - Exam -GENERAL: The patient is alert and oriented x3, active DTs HEENT: Pupils are round and equally reacting to light. EOMI. No scleral icterus. No conjunctival pallor. Normocephalic, atraumatic. No pharyngeal erythema. No thyromegaly. CARDIOVASCULAR: S1 and S2 present. No murmurs, rubs, or gallops. PULMONARY: Chest is clear to auscultation, no wheezing or crackles. ABDOMEN: Soft, nontender, nondistended, normoactive bowel sounds. No palpable organomegaly. MUSCULOSKELETAL: No joint swelling or deformity. EXTREMITIES: No cyanosis, clubbing, or pedal edema. NEUROLOGICAL: Higher functions as mentioned earlier, moves all 4 extremities, Active DTs, tremors SKIN: No rashes. - Labs CBC & Chem 7: 05/25/18 08:06 05/25/18 08:06 Assessment and Plan Assessment: Acute alcohol intoxication Alcohol withdrawal syndrome History of fall Hyponatremia Hypertension History of nicotine dependence Tourette syndrome History of depression Plan: Continue on current medication regime ,monitoring and symptomatic treatment. Banana bag. High risk for elopement, sitter ordered. Visitor restrictions as it appears visitor's are bringing in alcohol. GI and DVT prophylaxis in place. Close monitoring of electrolytes with repeat labs ordered for a.m. prognosis guarded given multiple complex medical issues. Patient needs rehab., Social work consult in place. The impression and plan of care has been dictated as directed. : I performed a history and examination of this patient, discussed the same with the dictator. I agree with the dictator's note ,documented as a scribe. Any additional findings or plans will be noted.
[2018-05-26] MEDS: HYDROcodone/APAP 10-325MG 1 EACH TAB PO PRN ×3 (00:12→23:15)
[2018-05-26] MEDS: KETOROLAC 30 MG/ML 1 ML VIAL IVP PRN ×3 (00:22→23:02)
[2018-05-26] MEDS: 1: MVI, ADULT NO.4 WITH VIT K 10 ML, THIAMINE 100 MG, FOLIC ACID 1 MG, POTASSIUM CHLORID IV SCH ×12 (02:49→12:00)
[2018-05-26 07:19] LABS: Anisocytosis Slight; Basophils % (A) 0 %; Eosinophils # (A) 0.4 k/uL (0-0.7); Eosinophils % (A) 5 %; HCT 38.2 % (39.0-53.0); HGB 11.9 gm/dL (13.0-17.5); Hypochromasia Slight; Lymphocytes % (A) 23 %; MCH 24.9 pg (25.0-35.0); MCHC 31.2 g/dL (31.0-37.0); MCV 79.9 fL (80.0-100.0); Mean Platelet Volume 7.7; Microcytosis Slight; Monocytes # (A) 0.3 k/uL (0-1.0); Monocytes % (A) 4 %; Neutrophils # (A) 5.7 k/uL (1.3-7.7); Neutrophils % (A) 67 %; Platelet Count 201 k/uL (150-450); RBC 4.78 m/uL (4.30-5.90); WBC 8.5 k/uL (3.8-10.6)
[2018-05-26 07:33] LABS: Anion Gap 8 mmol/L; Blood Urea Nitrogen 7 mg/dL (9-20); Calcium 8.6 mg/dL (8.4-10.2); Carbon Dioxide 27 mmol/L (22-30); Chloride 102 mmol/L (98-107); Glucose 96 mg/dL (74-99); Potassium 3.9 mmol/L (3.5-5.1); Sodium 137 mmol/L (137-145)
[2018-05-26] MEDS ORDERED: LORazepam 2 MG/ML INJ IV STA (09:54)
[2018-05-26] MEDS ORDERED: MORPHINE SULFATE 4 MG/ML SYRINGE IVP ONE (09:55)
[2018-05-26] MEDS: PANTOPRAZOLE 40 MG TABLET PO SCH (10:40)
[2018-05-26] MEDS: GABAPENTIN 400 MG CAP PO SCH ×4 (10:40→22:59)
[2018-05-26] MEDS: NICOTINE 14MG/24HR PATCH TRANSDERM SCH (10:41)
[2018-05-26] MEDS: FLUoxetine HCL 20 MG CAP PO SCH ×3 (10:41→22:59)
[2018-05-26] MEDS: amLODIPine 10 MG TAB PO SCH ×2 (10:41→23:00)
[2018-05-26] MEDS: chlordiazePOXIDE 25 MG CAP PO SCH ×3 (10:41→22:59)
[2018-05-26] MEDS: THIAMINE 100 MG TAB PO SCH ×2 (10:41→17:58)
[2018-05-26] MEDS: HEPARIN SODIUM,PORCINE 5,000 UNIT/ML 1 ML VIAL SQ SCH ×2 (10:42→23:00)
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
--- NOTE | 2018-05-26 14:22 | US ---
EXAMINATION TYPE: US venous doppler duplex LE LT DATE OF EXAM: 05/25/2018 9:50 AM COMPARISON: NONE CLINICAL HISTORY: pain . SIDE PERFORMED: Left TECHNIQUE: The lower extremity deep venous system is examined utilizing real time linear array sonog yajaira with graded compression, doppler sonography and color-flow sonography. VESSELS IMAGED: External Iliac Vein (EIV) Common Femoral Vein Deep Femoral Vein Greater Saphenous Vein * Femoral Vein Popliteal Vein Small Saphenous Vein * Proximal Calf Veins (* superficial vessels) Patient moving legs throughout exam. Left Leg: Negative for DVT IMPRESSION: No evidence of deep venous thrombosis left leg.
[2018-05-26] MEDS: TEMAZEPAM 15 MG CAP PO PRN (23:59)
[2018-05-27] MEDS: 1: MVI, ADULT NO.4 WITH VIT K 10 ML, THIAMINE 100 MG, FOLIC ACID 1 MG, POTASSIUM CHLORID IV SCH ×12 (00:02→10:39)
[2018-05-27] MEDS: PANTOPRAZOLE 40 MG TABLET PO SCH (07:26)
[2018-05-27] MEDS: GABAPENTIN 400 MG CAP PO SCH ×2 (07:27→12:21)
[2018-05-27] MEDS: HEPARIN SODIUM,PORCINE 5,000 UNIT/ML 1 ML VIAL SQ SCH (07:27)
[2018-05-27] MEDS: NICOTINE 14MG/24HR PATCH TRANSDERM SCH (07:28)
[2018-05-27] MEDS: chlordiazePOXIDE 25 MG CAP PO SCH (07:28)
[2018-05-27] MEDS: amLODIPine 10 MG TAB PO SCH (07:28)
[2018-05-27] MEDS: FLUoxetine HCL 20 MG CAP PO SCH (07:28)
[2018-05-27] MEDS: KETOROLAC 30 MG/ML 1 ML VIAL IVP PRN (07:38)
[2018-05-27] MEDS: THIAMINE 100 MG TAB PO SCH (12:22)
[2018-05-27 15:49] VITALS: BP 164/93; PULSE 97; RESP 18; TEMP 98
== END 2018-05-27 15:37 | disposition home or self-care (01) | DRG 897 ==
LOC: EC 18:51 → 4MS4W 21:56 → OBSVTOIN 05-24 09:10
PROVIDERS: ADMIT Hospitalist; ATTEND Hospitalist
DX: F10.229 Alcohol dependence with intoxication, unspecified (principal); E87.1 Hypo-osmolality and hyponatremia; E87.2 Acidosis; F10.239 Alcohol dependence with withdrawal, unspecified; Y90.8 Blood alcohol level of 240 mg/100 ml or more; D64.9 Anemia, unspecified; F17.200 Nicotine dependence, unspecified, uncomplicated; F95.2 Tourette's disorder; I10 Essential (primary) hypertension; Z91.81 History of falling; Z88.8 Allergy status to other drugs, medicaments and biological substances; Z79.890 Hormone replacement therapy; Z79.899 Other long term (current) drug therapy
CPT/HCPCS: 36415; 70450; 71045; 72125; 72170; 73502; 80048; 80306; 80320; 82009; 83036; 83520; 85025; 93005; 96361; 96372; 96374; 96376; 99285

== ENCOUNTER → 2020-04-23 | Outpatient (CLI) | payer MEDICARE, OTHER ==
--- NOTE | 2020-04-23 14:02 | CT ---
EXAMINATION TYPE: CT sinus wo con DATE OF EXAM: 04/23/2020 COMPARISON: None HISTORY: deviated septum, multiple old trauma, sinusitis CT DLP: [address] of the paranasal sinuses was performed in the axial and coronal planes. Bone and soft tissue settings are submitted. The paranasal sinuses demonstrate normal aeration and development. The paranasal sinuses are free of mucosal thickening or air fluid level. The osteal meatal units are patent bilaterally. The nasal septum is midline. No bony destructive changes are seen within the field of view. IMPRESSION: Normal unenhanced CT of the paranasal sinuses.
--- NOTE | 2020-04-23 14:12 | XR ---
EXAMINATION TYPE: XR chest 2V DATE OF EXAM: 04/23/2020 COMPARISON: 05/23/2018 TECHNIQUE: PA and lateral views submitted. HISTORY: Shortness of breath FINDINGS: The lungs are clear and there is no pneumothorax, pleural effusion, or focal pneumonia. Bilateral c hronic rib cage deformities are noted. Biapical pleural thickening. No overt failure. Heart size is e nlarged. There is subsegmental changes at the left lung base. Hypertrophic and degenerative change of the spine. Mild hyperinflation correlate for COPD. IMPRESSION: 1. Left basilar subsegmental changes which atelectasis is favored over pneumonia correlate clinically ..
== END | disposition home or self-care (01) ==
LOC: RADCTMAIN 13:36
PROVIDERS: ATTEND Otolaryngology
DX: J32.9 Chronic sinusitis, unspecified (principal); J98.11 Atelectasis
CPT/HCPCS: 70486; 71046